=== PATIENT | female | born 1950 | race Caucasian/White ===

== ENCOUNTER 2018-08-11 07:48 | Day surgery (SDC) | payer BC, OTHER ==
[~2018-08-11] VITALS: Ht 160 cm; Wt 66.1 kg
[2018-08-11] VITALS (7 sets, daily range): BP systolic 115–150; BP diastolic 65–74; PULSE 55–66; RESP 13–18; Ht 160 cm; Wt 66.1 kg
[2018-08-11] MEDS ORDERED: NO ACTIVE MEDS (08:20)
[2018-08-11] MEDS ORDERED: MIDAZOLAM 1 MG/ML 2 ML INJ ONE ×2 (10:45)
[2018-08-11] MEDS ORDERED: FENTAnyl 50 MCG/ML VIAL ONE (10:45)
== END 2018-08-11 10:40 | disposition home or self-care (01) ==
LOC: GIL 07:48
PROVIDERS: ATTEND Internal Medicine Gastroenterology
DX: Z12.11 Encounter for screening for malignant neoplasm of colon (principal); D12.5 Benign neoplasm of sigmoid colon; K64.8 Other hemorrhoids
CPT/HCPCS: 45380; 88305; J2250; J3010

== ENCOUNTER 2018-09-02 05:28 | Day surgery (SDC) | payer OTHER ==
[2018-08-28 11:26] VITALS: Ht 160 cm; Wt 68.3 kg
[~2018-09-02] VITALS: Ht 160 cm; Wt 68.3 kg
[2018-09-02] MEDS ORDERED: LACTATED RINGER'S 1,000 ML IV SCH (06:00)
[2018-09-02] MEDS ORDERED: CEFAZOLIN 2 GM/50 ML (PMX) 50 ML IVPB ONE (06:00)
[2018-09-02 06:34] VITALS: BP 123/69; PULSE 60; RESP 16
[2018-09-02] MEDS ORDERED: TRIAMCINOLONE ACET 40 MG/ML INJ ONE (07:03)
[2018-09-02] MEDS ORDERED: GENTAMICIN 80 MG INJ ONE (07:03)
[2018-09-02] MEDS ORDERED: LIDOCAINE 1%/EPI 30 ML INJ ONE (07:03)
[2018-09-02] MEDS ORDERED: BUPIVACAINE 0.25% (MPF) 30 ML INJ ONE (07:03)
[2018-09-02] MEDS ORDERED: POLYMYXIN/BACITRACIN 1L IRRIG ONE (07:03)
--- NOTE | 2018-09-02 07:26 | HPN ---
Date/Time of Note Date/Time of Note DATE: 09/02/18 TIME: 07:25 Interval H&P Admission Note Pt. seen H&P reviewed: No system changes VANDA MEDEL MD Sep 02, 2018 07:26
--- NOTE | 2018-09-02 07:42 | PREAC ---
Date/Time of Note Date/Time of Note DATE: 09/02/18 TIME: 07:40 Anesthesia Eval and Record Evaluation Time Pre-Procedure Interview DATE: 09/02/18 TIME: 07:25 Age 67 Sex female NPO: 8 hrs Preoperative diagnosis Back enlarging Tumor Planned procedure Excision of Enlarging back Tumor with flap Past Medical History Past Medical History: None Surgery & Anesthesia Issues No known issue Meds Anticoagulation: No Beta Marito within 24 hr: No Reason Beta Marito not given: Pt. not on B-Marito Discontinued Reported Medications [No Active Meds] No Conflict Check 08/11/18 Current Medications Lactated Ringer's 1,000 ml @ 0 mls/hr Q0M IV Last administered on 09/02/18at 06:52; Admin Dose 25 MLS/HR; Start 09/02/18 at 06:00; Stop 09/02/18 at 23:59 Meds reviewed: Yes Allergies Coded Allergies: No Known Allergy (Unverified , 09/02/18) Allergies Reviewed: Yes Labs/Studies Labs Reviewed: Reviewed by anesthesiologist test: N/A Studies: ECG (n/a), CXR (n/a) Pre-procedure Exam Last vitals Vital Signs Date Temp Pulse Resp B/P (MAP) Pulse Ox O2 O2 Flow FiO2 Time Delivery Rate 09/02/18 97.5 60 16 123/69 97 Room Air 06:34 (87) Airway: Adequate mouth opening, Adequate thyromental dist Mallampati: Mallampati II Teeth: Normal Lung: Normal Heart: Normal ASA Physical Status ASA physical status: 2 Emergency: None Planned Anesthetic General/MAC: MAC Planned Pain Management Parenteral pain med Pre-operative Attestations Prior to commencing anesthesia and surgery, the patient was re-evaluated, there was verification of: *The patient's identity *The results of appropriate recent lab work and preoperative vital signs *The above evaluation not changing prior to induction *Anesthetic plan, risk benefits, alternative and complications discussed with patient/family; questions answered; patient/family understands, accepts and wishes to proceed. DEJA DON MD Sep 02, 2018 07:42
[2018-09-02] MEDS ORDERED: FENTAnyl 50 MCG/ML VIAL ONE (07:47)
[2018-09-02] MEDS ORDERED: PROPOFOL 100 ML ONE (07:47)
[2018-09-02] MEDS ORDERED: MIDAZOLAM 1 MG/ML 2 ML INJ ONE (07:47)
[2018-09-02] MEDS ORDERED: METOCLOPRAMIDE 10 MG INJ ONE (08:12)
[2018-09-02] MEDS ORDERED: DEXAMETHASONE 4 MG/ML 5 ML INJ ONE (08:12)
[2018-09-02] MEDS ORDERED: ONDANSETRON 4 MG INJ ONE (08:12)
[2018-09-02] MEDS ORDERED: KETOROLAC 30 MG INJ ONE (08:12)
[2018-09-02] MEDS ORDERED: CEFAZOLIN 1 GM INJ ONE (08:12)
[2018-09-02] MEDS ORDERED: PHENYLephrine (100 MCG/ML) 10ML SYG ONE (08:49)
[2018-09-02] MEDS ORDERED: EPHEDrine 25 MG/5 ML SYG ONE (08:49)
[2018-09-02] MEDS ORDERED: EPHEDrine 25 MG/5 ML SYG IV PRN (09:00)
[2018-09-02] MEDS ORDERED: HYDROmorphONE 1 MG/5 ML IV SYRINGE IV PRN ×2 (09:00)
[2018-09-02] MEDS ORDERED: LABETALOL HCL 20MG INJ IV PRN (09:00)
[2018-09-02] MEDS ORDERED: ONDANSETRON 4 MG INJ IV PRN (09:00)
[2018-09-02] MEDS ORDERED: METOCLOPRAMIDE 10 MG INJ IV PRN (09:00)
[2018-09-02] MEDS ORDERED: OXYCODONE/ACETAMINOPHEN (5/325) TAB PO PRN (09:00)
[2018-09-02] MEDS ORDERED: FENTAnyl 50 MCG/ML VIAL IV PRN ×2 (09:00)
[2018-09-02] MEDS ORDERED: MUPIROCIN 2% 15 GM CR ONE (09:10)
--- NOTE | 2018-09-02 09:29 | PAC ---
Date/Time of Note Date/Time of Note DATE: 09/02/18 TIME: 09:29 Post-Anesthesia Notes Post-Anesthesia Note Last documented vital signs Vital Signs Date Temp Pulse Resp B/P (MAP) Pulse Ox O2 O2 Flow FiO2 Time Delivery Rate 09/02/18 97.5 60 16 123/69 97 Room Air 09:34 (87) Activity: WNL Respiratory function: WNL Cardiovascular function: WNL Mental status: Baseline Pain reasonably controlled: Yes Hydration appropriate: Yes Nausea/Vomiting absent: Yes DEJA DON MD Sep 02, 2018 09:29
[2018-09-02 09:30] VITALS: BP 108/59; PULSE 70; RESP 15
[2018-09-02] MEDS ORDERED: MUPIROCIN 2% 22 GM OINT TOP ONE (09:33)
[2018-09-02 09:35] VITALS: BP 111/62; PULSE 74; RESP 15
--- NOTE | 2018-09-02 09:36 | OPPN ---
Date/Time of Note Date/Time of Note DATE: 09/02/18 TIME: 09:24 Operative Report Preoperative Diagnosis Enlarging Tumor Right Lower Back Postoperative Diagnosis Same Operation/Procedure Performed Excision of Tumor Right Lower Back (15 cm. X 12 cm.), and Fasciocutaneous Flap Reconstruction Surgeon Vanda Marie M.D. marketing administrative assistant None Anesthesia: MAC, moderate sedation, other (Local Anesthetic Infiltration: 60 ml. of 0.125% Marcain, 0.5% Lidocaine, and 1/200,000 Epinephrin solution) Estimated blood loss: 0 - 10 ml's (5 ml.) Transfusion Required none Specimen Enlarging Tumor Right Lower Back Grafts/Implants none Complications none VANDA MARIE MD Sep 02, 2018 09:35
[2018-09-02 09:40] VITALS: BP 106/55; PULSE 72; RESP 18
[2018-09-02 10:12] VITALS: BP 129/71; PULSE 69; RESP 16
--- NOTE | 2018-09-02 11:28 | OPR ---
DATE OF OPERATION: 09/02/2018 PREOPERATIVE DIAGNOSIS: Enlarging tumor right lower back (15 x 12 cm). POSTOPERATIVE DIAGNOSIS: Enlarging tumor right lower back (15 cm x 12 cm). OPERATION PERFORMED: Excision of tumor right lower back (15 x 12 cm) and fasciocutaneous flap recons truction. PERFECT BINDER FEEDER OFFBEARER: None. ANESTHESIA: Monitored anesthesia care with intravenous sedation. ANESTHESIOLOGIST: Gabriel Dunaway MD LOCAL ANESTHETIC INFILTRATION: 60 mL of 0.5% lidocaine, 0.125% Marcaine and 1:200,000 epinephrine so lution. ESTIMATED BLOOD LOSS: 5 mL. DRAINS: None. SPECIMEN: Enlarging tumor, right lower back. DRESSING: Bactroban cream, dry sterile dressing, Tegaderm, ABD pads and Medipore tape. OPERATIVE PROCEDURE: With the patient in sitting position, markings were made for the planned proced ure in the holding area. Next, in the operating room with the patient in supine position, position w as changed to left lateral decubitus with the right shoulder elevated at this time, following adequat e monitoring and induction of adequate level of monitored anesthesia care with intravenous sedation kierra Dunaway, anesthesiologist. The tumor was injected at the base with adequate amount of local an esthetic solution. Following routine prep and drape, operation was started by incising over the tumo r. The incision was deepened through subcutaneous tissue until the tumor was reached. 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 Plane of dissection was carefully carried around the entire periphery of the large tumor that was noted to be multiloculated and penetrating in to the underlying muscle at some sections. Careful dissection completely mobilized and removed. The tumor and the vascular pedicle was controlled using double [id number] stitches of 2-0 Monocryl. At this time, operative area was irrigated using copious amount of triple antibiotic solution. A d irect closure was noted to cause significant deformity and also concern for a postoperative dehiscenc e due to the size, direction and location of the tumor. Therefore, a double advancement fasciocutane ous flap was easily elevated and advanced, in order to reconstruct the defect without tension. Inter rupted and continuous stitches of #1 Vicryl and a #2-0 Monocryl were used for insetting of the flap f ollowed by retention stitches of #1 Prolene. Repair was found to be satisfactory upon its completion . Dressing was applied as mentioned above. Patient tolerated this procedure very well and left the operating room to the recovery room awake, stable and in comfortable satisfactory and stable conditio n. Dictated By: VANDA MCPHERSON/KATHARINE Conf#: [id number] DID#: [id number]
== END 2018-09-02 10:50 | disposition home or self-care (01) ==
LOC: SDS 05:28
PROVIDERS: ATTEND Plastic Surgery
DX: D17.1 Benign lipomatous neoplasm of skin and subcutaneous tissue of trunk (principal)
CPT/HCPCS: 15734; 21933; 88307; J0690; J1100; J1580; J1885; J2250; J2370; J2405; J2765; J3010

== ENCOUNTER 2018-10-07 06:29 | Day surgery (SDC) | payer OTHER ==
[2018-10-02 17:16] VITALS: BMI 27.7
[~2018-10-07] VITALS: Ht 160 cm; Wt 71.9 kg
[2018-10-07] VITALS (7 sets, daily range): BP systolic 118–150; BP diastolic 58–76; PULSE 58–74; RESP 12–38; Ht 160 cm; Wt 71.9 kg
[2018-10-07] MEDS ORDERED: LACTATED RINGER'S 1,000 ML (ENTER RATE) IV SCH (07:30)
[2018-10-07] MEDS ORDERED: CEFAZOLIN 2 GM/50 ML (PMX) 50 ML IVPB ONE (07:30)
[2018-10-07] MEDS ORDERED: BUPIVACAINE 0.25% (MPF) 30 ML INJ ONE (08:45)
[2018-10-07] MEDS ORDERED: LIDOCAINE 1%/EPI 30 ML INJ ONE (08:45)
[2018-10-07] MEDS ORDERED: MUPIROCIN 2% 15 GM CR ONE (08:45)
[2018-10-07] MEDS ORDERED: GENTAMICIN 80 MG INJ ONE (08:46)
[2018-10-07] MEDS ORDERED: POLYMYXIN/BACITRACIN 1L IRRIG ONE (08:46)
[2018-10-07] MEDS ORDERED: FENTAnyl 50 MCG/ML VIAL IV PRN (09:30)
[2018-10-07] MEDS ORDERED: GLYCOPYRROLATE 0.4 MG INJ ONE (10:00)
[2018-10-07] MEDS ORDERED: PROPOFOL 20 ML ONE (10:04)
[2018-10-07] MEDS ORDERED: CEFAZOLIN 1 GM INJ ONE (10:13)
[2018-10-07] MEDS ORDERED: OXYCODONE/ACETAMINOPHEN (5/325) TAB PO PRN (11:00)
== END 2018-10-07 11:50 | disposition home or self-care (01) ==
LOC: SDS 06:29
PROVIDERS: ATTEND Plastic Surgery
DX: D36.17 Benign neoplasm of peripheral nerves and autonomic nervous system of trunk, unspecified (principal); D24.2 Benign neoplasm of left breast
CPT/HCPCS: 88305; J0690; J1580